=== PATIENT | female | born 1995 | race Caucasian/White ===

== ENCOUNTER 2021-09-10 12:00 | Emergency (ER) | payer OTHER, SELFPAY ==
[2021-09-10 12:15] VITALS: BP 113/79; PULSE 93; RESP 16; TEMP 36.7; O2SAT 100
--- NOTE | 2021-09-10 12:30 | ED.URI ---
HPI - URI/Sore Throat General Chief Complaint: Upper Respiratory Infection Stated Complaint: Sore Throat,Unable to Hear Lt Ear Time Seen by Provider: 09/10/21 12:30 History of Present Illness HPI Narrative: Kathi Cortes is a 25 yo female with PMH depression and is 2 months post who upper respiratory symptoms for a week of mild cough, green mucous when she coughs or blows nose,sore throat; no fever, Eye appear red today. she states her baby also has eye discharge. She has had no fever, no N/V/D Related Data Home Medications Medication Instructions Recorded Confirmed buspirone 10 mg tablet 1 tablet PO DAILY 09/10/21 09/10/21 paroxetine HCl 20 mg tablet 1 tablet PO DAILY 09/10/21 09/10/21 Allergies Allergy/AdvReac Type Severity Reaction Status Date / Time No Known Allergies Allergy Verified 09/10/21 12:50 Review of Systems Review of Systems: CONSTITUTIONAL: Denies fever, chills, sweats. EYES: Denies visual changes, redness, has bilateral discharge. ENT: Denies rhinorrhea, has congestion, has sore throat, left otalgia. CARDIOVASCULAR: Denies chest pain, palpitations, edema. RESPIRATORY: Denies dyspnea, wheezing, mild cough GASTROINTESTINAL: Denies abdominal pain, nausea, vomiting, diarrhea. GENITOURINARY: Denies dysuria, hematuria, abnormal discharge SKIN: Denies rash or itching. NEUROLOGIC: Denies numbness, or focal weakness. PSYCHIATRIC: Denies anxiety or depression. [facility] Past Medical History Medical History Depression Social History Social History (Updated 09/10/21 @ 12:42 by Joselin Gastelum CNP) Smoking status: Never smoker Alcohol intake: former Comments At time of signature, I agree with nursing past medical, surgical, social and family history. There is no relevant family history pertinent to the presenting complaint. Exam Narrative: GENERAL: This is a well-nourished, well-developed patient, in mild distress. HEAD: normocephalic, atraumatic. EYES: Sclera clear/bilateral injection. Vision is grossly intact. EARS: External ears normal, auditory canals erythema and without drainage, TMs normal without perforation. Hearing grossly intact. NOSE: External nose normal without nasal discharge, nares without redness, has rhinorrhea. THROAT: Mucous membranes moist, posterior pharynx erythema, no exudate NECK: Neck supple, non-tender CARDIOVASCULAR: Regular rate and rhythm without murmurs, gallops, or rubs. RESPIRATORY: Clear to auscultation. Breath sounds equal bilaterally. No wheezes, rales, or rhonchi. GASTROINTESTINAL: Abdomen soft, non-tender, SKIN: warm, intact with no suspicious lesions or rash, good texture and turgor. NEURO: awake, alert, and oriented to person, place and time. There were no obvious focal neurologic abnormalities. Steady gait EXTREMITIES: Normal range of motion. BACK: Nontender without deformity Course Course Emergency Course: Patient comes to [facility] with multiple upper respiratory symptoms, no fever she also has injection of her conjunctiva bilaterally Strep test is negative Started on amoxicillin, continue Benadryl zyrtec x 1 week, tobramycin oint-discussed meds with breast-feeding Level of Care: Express Care Visit Vital Signs Vital signs: Vital Signs Temperature 98.1 F 09/10/21 12:15 Pulse Rate 93 09/10/21 12:15 Respiratory Rate 16 09/10/21 12:15 Blood Pressure 113/79 09/10/21 12:15 Pulse Oximetry 100 09/10/21 12:15 Oxygen Delivery Room Air 09/10/21 12:15 Temperature 98.1 F 09/10/21 12:15 Pulse Rate 93 09/10/21 12:15 Respiratory Rate 16 09/10/21 12:15 Blood Pressure 113/79 09/10/21 12:15 Pulse Oximetry 100 09/10/21 12:15 Oxygen Delivery Room Air 09/10/21 12:15 MDM - URI/Sore Throat Differential Diagnosis Differential diagnosis: Likely upper respiratory infection, otitis media, sinusitis, viral infection, pharyngitis and other Lab Data Labs:
== END 2021-09-10 12:52 | disposition home or self-care (01) ==
PROVIDERS: Emergency Provider Nurse Practitioner
DX: H66.003 Acute suppurative otitis media without spontaneous rupture of ear drum, bilateral (principal); H10.33 Unspecified acute conjunctivitis, bilateral; F32.A Depression, unspecified
CPT/HCPCS: 87081; 87880; 99213; G0463

== ENCOUNTER 2022-08-06 19:09 | Emergency (ER) | payer OTHER, SELFPAY ==
--- NOTE | 2022-08-06 19:15 | ED.URI ---
HPI - URI/Sore Throat General Chief Complaint: Upper Respiratory Infection Stated Complaint: right eye/congestion/ears Time Seen by Provider: 08/06/22 19:28 Source: patient and RN notes reviewed Mode of arrival: ambulatory Limitations: no limitations History of Present Illness HPI Narrative: 26-year-old female presents with concern for 5 day history of nasal congestion, rhinorrhea, bilateral ear pain it, ears feeling clogged., headache. She also reports exposure to pinkeye and dried eye redness, irritation, green drainage MD elicited complaint: nasal congestion and other (ear pain, eye drainage) Related Data Home Medications Medication Instructions Recorded Confirmed buspirone 10 mg tablet 1 tablet PO DAILY 09/10/21 08/06/22 paroxetine HCl 20 mg tablet 1 tablet PO DAILY 09/10/21 08/06/22 Allergies Allergy/AdvReac Type Severity Reaction Status Date / Time No Known Allergies Allergy Verified 08/06/22 19:19 Review of Systems Review of Systems: CONSTITUTIONAL: Denies malaise, chills, sweats, or fever. EYES: Denies visual changes. Reports right eye irritation, redness, green discharge. ENT: Reports rhinorrhea, congestion, otalgia CARDIOVASCULAR: Denies chest pain, palpitations, or edema. RESPIRATORY: Denies cough. Denies dyspnea. GASTROINTESTINAL: Denies abdominal pain, nausea, vomiting, diarrhea SKIN: Denies rash or itching. MUSCULOSKELETAL: Denies myalgia. NEUROLOGIC: Denies headache. All systems reviewed & are unremarkable except as noted in HPI and below PMFSH Past Medical History Medical History Depression Social History Social History (Updated 09/10/21 @ 12:42 by Joselin Gastelum, TANJA) Smoking status: Never smoker Alcohol intake: former Comments At time of signature, agree with nursing past medical, surgical, social and family history. There is no relevant family history pertinent to the presenting complaint Exam Narrative: GENERAL: Well-appearing, well-nourished, and in no acute distress. HEAD: Normocephalic EYES: PERRLA, left conjunctivae clear. Right sclera and conjunctiva injected with green drainage noted ENT: Nares clear, turbinates edematous and erythematous, clear discharge. Mucous membranes moist. TM erythematous and full bilaterally; no tragal tenderness. Oropharynx not erythematous without lesions. Tonsils not enlarged and without exudate, no drooling, no hoarseness, no trismus, uvula midline. NECK: Supple. No lymphadenopathy CHEST: Clear to auscultation, breath sounds equal. No wheezing, rhonchi, rales, or stridor. No respiratory distress, speaks in full sentences. HEART: Regular rate and rhythm. No murmur heard. SKIN: Warm, dry, no rash. NEURO: Alert and oriented x3. PSYCH: Normal mood and affect Course Course Emergency Course: Patient is aware of diagnosis, understands and agrees to treatment plan. Anticipatory guidance given. Patient agrees to follow-up as directed and is aware of reasons to seek care at the emergency department. Portions of this record may have been created with voice recognition software Level of Care: Express Care Visit Vital Signs Vital signs: Reviewed. MDM - URI/Sore Throat MDM Narrative Medical decision making narrative: Differential diagnosis considered: [place] virus, strep pharyngitis, allergic rhinitis, upper respiratory tract infection, sinusitis, rhinosinusitis, nasopharyngitis. viral pharyngitis, otitis media, otitis externa, pneumonia, bronchitis, viral cough syndrome, viral syndrome, and influenza. Exam findings show no acute concerns or changes; patient is non-toxic appearing and is in no distress. Patient is appropriate for outpatient treatment and follow-up. Consideration of the following conditions may be warranted for the presenting problem, they are not final diagnoses: Bacterial conjunctivitis, allergic conjunctivitis, viral conjunctivitis, foreign body, blepharitis, chalazion
[2022-08-06 19:18] VITALS: BP 132/69; PULSE 89; RESP 18; TEMP 36.4; O2SAT 99
== END 2022-08-06 19:39 | disposition home or self-care (01) ==
PROVIDERS: Emergency Provider Nurse Practitioner; PCP Physician Assistant
DX: H66.93 Otitis media, unspecified, bilateral (principal); H10.9 Unspecified conjunctivitis; F32.A Depression, unspecified
CPT/HCPCS: 99213; G0463

== ENCOUNTER 2023-07-12 18:33 | Emergency (ER) | payer OTHER, MEDICAID, SELFPAY ==
--- NOTE | ~2023-07-12 | XR_ITS ---
EXAM: XR foot RT min 3V DATE: 07/12/2023 19:40 HISTORY: 4 digit pain, kicked a house . COMPARISON: None available. FINDINGS: Normal mineralization. No fracture or dislocation. No lytic or blastic lesion. Joint space s are maintained. Mild Achilles and plantar enthesopathy. No erosion or periosteal change. Soft tissu es within normal limits. IMPRESSION: No acute osseous finding in the right foot. Reviewed, dictated and finalized at location K.
--- NOTE | 2023-07-12 18:59 | ED.LOWEXIN ---
HPI - Extremity Injury (Lower) General Chief Complaint: Extremity Problem,Nontraumatic Stated Complaint: R Foot, toe injury Time Seen by Provider: 07/12/23 19:43 Source: patient and RN notes reviewed Mode of arrival: ambulatory Limitations: no limitations History of Present Illness HPI Narrative: 27-year-old female presents with concern for pain to the 4th digit of the right foot. 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 She reports bruising and difficulty bending the digit. This happened prior to arrival, she denies intervention other than ice here at the urgent care MD complaint: foot injury Related Data Home Medications Medication Instructions Recorded Confirmed lisdexamfetamine 40 mg capsule mg 07/12/23 (Vyvanse) norethindrone 1 mg-ethinyl tablet 07/12/23 estradiol 10 mcg (24)-iron 10 mcg(2) tablet (Lo Loestrin Fe) Allergies Allergy/AdvReac Type Severity Reaction Status Date / Time No Known Allergies Allergy Verified 07/12/23 18:59 Review of Systems Review of Systems: CONSTITUTIONAL: Denies malaise, chills, sweats, or fever. SKIN: Denies rash or itching, open skin, laceration, abrasion, redness, warmth, swelling. MUSCULOSKELETAL: Reports pain, bruising to the 4th digit of the right foot NEUROLOGIC: Denies numbness, weakness All systems reviewed & are unremarkable except as noted in HPI and below PMFSH Past Medical History Medical History Depression Social History Social History (Updated 09/10/21 @ 12:42 by Joselin Gastelum, TANJA) Smoking status: Never smoker Alcohol intake: former Comments At time of signature, agree with nursing past medical, surgical, social and family history. There is no relevant family history pertinent to the presenting complaint Exam Narrative: GENERAL: Well-appearing, well-nourished, and in no acute distress. HEAD: Normocephalic, atraumatic. EYES: PERRLA, conjunctivae clear NECK: Supple. CHEST: Speaks in full sentences. No respiratory distress. HEART: Regular rate and rhythm. Normal and equal peripheral pulses. EXTREMITIES: 4th digit of right foot has normal strength and sensation, slightly limited range of motion, likely due to pain. Mild digit edema with subungual hematoma noted. Normal sensation with sensitivity to light touch and pain. Digit tenderness. No open wounds, no skin tenting, no devitalized tissue or atrophy, no trophic changes, no obvious deformity, alignment normal, nearby joints and structures intact. Distal pulses palpable and equal bilaterally, skin warm, dry, pink. Capillary refill less than 3 seconds. SKIN: Warm, dry, no rash. NEURO: Alert and oriented x3. PSYCH: Normal mood and affect Course Course Emergency Course: Patient is aware of diagnosis, understands and agrees to treatment plan. Anticipatory guidance given. Patient agrees to follow-up as directed and is aware of reasons to seek care at the emergency department. Portions of this record may have been created with voice recognition software Level of Care: Express Care Visit Vital Signs Vital signs: Reviewed. Procedures Nail Trephination Nail Trephination #1: Nail Trephination Date: 07/12/23 Nail Trephination Time: 19:50 Time out: Yes Location (toes): fourth digit Sterile prep: betadine Method of drainage: nail cautery Procedure successful: Yes Patient tolerated procedure: well MDM - Extremity Injury (Lower) MDM Narrative Medical decision making narrative: Patients injury and pain is consistent with musculoskeletal etiology. No signs of neurological or vascular compromise on exam. Compartments and tissues are soft without signs of compartment syndrome. Pain is felt appropriate for further evaluation on an outpatient basis. Critical Care Time Critical Care Time Critical Care Time: No Discharge Plan Discharge Clinical Impression: Subungual hem
[2023-07-12 19:00] VITALS: BP 132/75; PULSE 94; RESP 16; TEMP 37; O2SAT 100
== END 2023-07-12 20:04 | disposition home or self-care (01) ==
PROVIDERS: Emergency Provider Nurse Practitioner; PCP Physician Assistant
DX: S90.221A Contusion of right lesser toe(s) with damage to nail, initial encounter (principal); W22.8XXA Striking against or struck by other objects, initial encounter
CPT/HCPCS: 11740; 73630; 99213; G0463